=== PATIENT | female | born 1990 | race Caucasian/White ===

== ENCOUNTER 2018-05-26 11:43 | Emergency (ER) | payer OTHER ==
[~2018-05-26] VITALS: Ht 157.5 cm; Wt 90.7 kg
[~2018-05-26 11:43] MED LIST: BACTRIM DS TAB1 EACH PO; BENADRYL25 MG PO; NOHOMEMEDICATIONS; PEPCID AC20 M1 PO; PREDNISONE 20 M20 M1 PO
[2018-05-26 11:50] VITALS: BP 138/91
[2018-05-26] MEDS ORDERED: KEFLEX500 M1 PO (11:55)
[2018-05-26] MEDS ORDERED: BACTRIM DS TAB1 EACH PO (11:55)
[2018-05-26] MEDS ORDERED: TRAMADOL 50 MG50 MG PO (11:55)
== END 2018-05-26 12:03 | disposition home or self-care (01) ==
LOC: M.ERS 11:43
DX: L02.411 Cutaneous abscess of right axilla (principal); F17.200 Nicotine dependence, unspecified, uncomplicated; Z98.890 Other specified postprocedural states

== ENCOUNTER 2018-09-17 23:29 | Emergency (ER) | payer OTHER ==
[~2018-09-17] VITALS: Ht 157.5 cm; Wt 93.4 kg
[~2018-09-17 23:29] MED LIST changes: +KEFLEX500 M1 PO; +TRAMADOL 50 MG50 MG PO
[2018-09-17] MEDS ORDERED: NEXIUM40 MG PO (23:46)
[2018-09-18] MEDS ORDERED: KEFLEX500 M1 PO (01:30)
[2018-09-18] MEDS ORDERED: BACTRIM DS TAB1 EACH PO (01:30)
[2018-09-18 01:52] VITALS: BP 123/58
== END 2018-09-18 01:53 | disposition home or self-care (01) ==
LOC: M.ERS 23:29
DX: L03.311 Cellulitis of abdominal wall (principal); B37.2 Candidiasis of skin and nail; Z98.890 Other specified postprocedural states

== ENCOUNTER 2018-11-12 21:19 | Emergency (ER) | payer OTHER ==
[~2018-11-12] VITALS: Ht 157.5 cm; Wt 93.4 kg
[~2018-11-12 21:19] MED LIST changes: +NEXIUM40 MG PO
[2018-11-12] MEDS ORDERED: ACETAMINOPHEN-1 EAC1 PO (23:15)
[2018-11-12] MEDS ORDERED: PHENERGAN 25 MG25 M1 PO (23:15)
[2018-11-12] MEDS ORDERED: AMOXICILLIN875 MG PO (23:15)
[2018-11-12 23:37] VITALS: BP 131/78
== END 2018-11-12 23:40 | disposition home or self-care (01) ==
LOC: M.ERS 21:19
DX: J40 Bronchitis, not specified as acute or chronic (principal); Z98.890 Other specified postprocedural states